=== PATIENT | male | born 1945 | race Caucasian/White ===

== ENCOUNTER 2017-08-12 10:00 | Day surgery (SDC) | payer OTHER, MEDICARE ==
[2017-08-09 14:18] VITALS: BMI 30.7
[2017-08-12] MEDS ORDERED: DEXAMETHASONE SOD PHOSPHATE/PF 10 MG/ML SDV ONE (10:22)
[2017-08-12] MEDS ORDERED: BUPIVACAINE HCL/PF (5 MG/ML) 30 ML VIAL IJ ONE (10:22)
[2017-08-12] MEDS ORDERED: MIDAZOLAM HCL 2 MG/2 ML SINGLE DOSE VIAL ONE (10:22)
[2017-08-12] MEDS ORDERED: oxyCODONE HCL 10 MG SUSTAINED ACTING TABLET ONE (11:08)
--- NOTE | 2017-08-12 11:20 | HP ---
History & Physical Update - History History: No Change - Physical Physical: No Change - Assessment Assessment: No Change - Plan Plan: No Change
[2017-08-12] MEDS ORDERED: methylPREDNISolone ACET (DEPO) 40 MG/1 ML VIAL ONE (11:34)
[2017-08-12] MEDS ORDERED: THROMBIN (BOVINE) 5,000 UNIT VIAL TP ONE ×2 (11:35→12:57)
[2017-08-12] MEDS ORDERED: LIDOCAINE 1%/EPI 1:100000 (20 ML MULTI DOSE VIAL) ONE (11:35)
[2017-08-12] MEDS ORDERED: LIDOCAINE 1%/EPI 1:100000 (50 ML MULTI DOSE VIAL) INF ONE (12:31)
[2017-08-12] MEDS ORDERED: methylPREDNISolone ACET (DEPO) 40 MG/1 ML VIAL IM ONE ×2 (12:56→13:40)
--- NOTE | 2017-08-12 15:05 | OP ---
Operative Note - Note: Operative Date: 08/12/17 Pre-Operative Diagnosis: spinal stenosis Operation: laminectomy of L4-L5 Surgeon: Kirit Scales Hyperbaric Technician: Avelina Lawrence Anesthesiologist/BUS MATRON: Jovanni Emanuel Anesthesia: Spinal Estimated Blood Loss (mls): 40 Fluid Volume Replaced (mls): 1,400 Operative Report Dictated: Yes
--- NOTE | 2017-08-12 15:06 | SURG ---
Surgery Tug Hand Note Tug Hand: Avelina Lawrence PA-C Date of Service: 08/12/17 Diagnosis: spinal stenosis Procedure: laminectomy of L4-L5 I was present for the entirety of the operative procedure. For further detail, please refer to operative report. Visit type - Case Type Case Type: Scheduled Admission - Emergency Emergency Visit: No - New patient This patient is new to me today: Yes Date on this admission: 08/12/17
--- NOTE | 2017-08-12 15:15 | OP ---
DATE OF OPERATION: 08/12/2017 PREOPERATIVE DIAGNOSIS: L4-5 spinal stenosis. POSTOPERATIVE DIAGNOSIS: L4-5 spinal stenosis. PROCEDURE PERFORMED: Laminectomy, L4-5. SURGEON: Kirit Scales MD TRACTOR MECHANIC: DONALD Gonzalez ESTIMATED BLOOD LOSS: 50 mL INTRAVENOUS FLUIDS: Per Anesthesia. COMPLICATIONS: None. DISPOSITION: The patient was brought to the PACU in stable condition. INDICATION FOR SURGERY: The patient is a 71-year-old gentleman who has been suffering from pain from his back down his legs. X-rays and MRI were completed which noted that he had spinal stenosis at L4-5. He had gone through an exhaustive course of treatment for this, which included medications, physical therapy as well as injections. Unfortunately, his pain continued to persist despite all this. At this point, risks, benefits, and alternatives were discussed, and the patient consented to surgery. DESCRIPTION OF PROCEDURE: Patient was brought to the operating room by the Anesthesia staff. After appropriate patient identification was performed, spinal anesthesia was given along with a TLIP block. Patient was able to position himself on the OR bed and avoid all bony prominences. Two needles were placed into his back to syd off the L4-5 level. X-ray was taken to confirm this as correct. [place] were removed, and 10 mL of lidocaine with epinephrine were injected in his back at this time. His back was prepped and draped in a sterile manner. At this point, a timeout was completed. An incision was made from the top of L4 down to the bottom of L5. Dissection was carried down to the fascia. Fascia was split open at this time, and the appropriate retractors were then placed in. A spinal needle was placed onto the L4 lamina, and x-ray confirmed this to be the L4-5 level. At this point, the microscope was brought in. The interspinous ligament at L4-5 was removed. Portion of the L4-L5 spinous processes were removed. Portion of the L4 and L5 lamina were removed. A complete decompression was performed such that by the end of the procedure the L5 nerve root appeared to be well decompressed. All bleeding was well controlled at this time. Steroid was placed over the nerve root. FloSeal was placed over that. The fascia was closed with a No. 1 Vicryl suture. Subcutaneous tissues were closed with 2-0 Vicryl suture. Skin was closed with 3-0 Monocryl suture. Dermabond was applied. Steri-Strips were applied. A sterile dressing was applied. The patient was placed supine on the OR bed and brought to the PACU in stable condition. Velia HERMAN/[id number]
[2017-08-12] MEDS ORDERED: oxyCODONE HCL 5 MG TABLET PO PRN (15:25)
[2017-08-12] MEDS ORDERED: ONDANSETRON 4 MG/2 ML VIAL IVPUSH PRN (15:25)
[2017-08-12] MEDS ORDERED: LACTATED RINGERS SOLUTION 1,000 ML IV SCH (15:30)
[2017-08-12 16:00] VITALS: BP 124/71
[2017-08-12 18:05] VITALS: PULSE 87; TEMP 98.2
== END 2017-08-12 17:30 | disposition home or self-care (01) ==
LOC: FASU 10:00
PROVIDERS: ATTEND Orthopaedic Surgery Orthopaedic Surgery of the Spine
PROC: 01NB0ZZ Release Lumbar Nerve, Open Approach (ICD-10-PCS; principal; 2017-08-12 12:36)
DX: M48.061 Spinal stenosis, lumbar region without neurogenic claudication (principal)
CPT/HCPCS: 72100-TC; 94760